=== PATIENT | female | born 1985 | race Caucasian/White ===

== ENCOUNTER 2024-06-11 13:02 | Emergency (ER) | payer BC, SELFPAY ==
[2024-06-11 13:22] VITALS: BP 124/80; PULSE 93; RESP 16; TEMP 36.7; O2SAT 99
--- NOTE | 2024-06-11 13:27 | ED.URI ---
HPI - URI/Sore Throat General Chief Complaint: Upper Respiratory Infection Stated Complaint: bilateral ear discomfort,nasal congestion Time Seen by Provider: 06/11/24 13:27 Source: patient, RN notes reviewed and old records reviewed Mode of arrival: ambulatory Limitations: no limitations History of Present Illness HPI Narrative: patient presents with complaints of nasal congestion and bilateral ear discomfort for about 1 week. She denies any fevers. She reports that ears are feeling progressively worse, she has been taking TheraFlu intermittently with poor relief. Denies any injury or trauma. Voices no other concerns or complaints today. Related Data Allergies Allergy/AdvReac Type Severity Reaction Status Date / Time No Known Allergies Allergy Verified 06/11/24 13:20 Review of Systems Review of Systems: All systems reviewed & are unremarkable except as noted in HPI and below Constitutional: Constitutional: Reports no additional constitutional complaints ENT: Reports system reviewed and no additional complaints, except as documented, Reports as per HPI and Reports otalgia Cardiovascular: Cardiovascular: Reports no additional cardiovascular complaints Respiratory: Respiratory: Reports no additional respiratory complaints Gastrointestinal: Gastrointestinal: Reports no additional gastrointestinal complaints PMFSH Comments At the time of my signature, I reviewed and agree with the nursing past medical, surgical, social, and family history. There is no relevant family history pertinent to the patient complaint. Exam Const: General: cooperative, no acute distress, alert and awake Orientation/consciousness: oriented to person, oriented to place and oriented to time HENMT: Head: normal to inspection Ears: TM abnormal dull on the right, erythematous on the left and with loss of landmarks on the left Resp: Effort & Inspection: normal respiratory effort and able to speak in complete sentences Auscultation: clear to auscultation bilaterally, no crackles, no rales, no rhonchi and no wheezes Cardio: Palpation: normal PMI Rate: regular rate Rhythm: regular rhythm Heart sounds: S1 normal heart sound present and S2 normal heart sound present Neuro: General: oriented to person, oriented to place and oriented to time Cranial nerves: Yes CN's II-XII intact bilaterally Psych: Appearance: grossly normal Thought process: Normal thought process present Insight: Good insight present (Psych) Judgement: Good judgement present (Psych) Course Course Level of Care: Express Care Visit Vital Signs Vital signs: Vital Signs Temperature 98.1 F 06/11/24 13:22 Pulse Rate 93 06/11/24 13:22 Respiratory Rate 16 06/11/24 13:22 Blood Pressure 124/80 06/11/24 13:22 Pulse Oximetry 99 06/11/24 13:22 Temperature 98.1 F 06/11/24 13:22 Pulse Rate 93 06/11/24 13:22 Respiratory Rate 16 06/11/24 13:22 Blood Pressure 124/80 06/11/24 13:22 Pulse Oximetry 99 06/11/24 13:22 Reviewed MDM - URI/Sore Throat MDM Narrative Medical decision making narrative: Physical exam consistent with otitis media. start Augmentin, follow with primary care provider. Emergency department for new or worse symptoms. Discharge instructions reviewed with patient, as well as provided in writing per nursing staff. The instructions also include specific and strict return/GO TO THE ER as well as f/u information. All questions have been answered, and the patient deny any further questions with discharge and discharge plan. Some parts of this dictation were generated by voice recognition software and may contain typographical and/or grammatical inaccuracies. Differential Diagnosis Differential diagnosis: Likely upper respiratory infection, otitis media, viral infection, influenza and pharyngitis Medical Records Attestation: I reviewed the patient's medical records. Discharge Plan Discharge Clinical Impression: Otitis media
== END 2024-06-11 13:36 | disposition home or self-care (01) ==
PROVIDERS: Emergency Provider Nurse Practitioner Family
DX: H66.002 Acute suppurative otitis media without spontaneous rupture of ear drum, left ear (principal)
CPT/HCPCS: 99213; G0463

== ENCOUNTER 2024-12-31 16:44 | Emergency (ER) | payer BC, SELFPAY ==
[2024-12-31 16:51] VITALS: BP 129/75; PULSE 67; RESP 16; TEMP 37.3; O2SAT 100
--- NOTE | 2024-12-31 17:00 | ED_ITS ---
HPI - Ear Problem General Chief complaint: Ear Stated complaint: EARACHE Time Seen by Provider: 12/31/24 16:55 Source: patient and RN notes reviewed Mode of arrival: ambulatory Limitations: no limitations History of Present Illness HPI Narrative: 39-year-old female presents concern for right ear pain. Reports this started last night. She denies cold symptoms, fever, drainage from the ear. MD Complaint: ear pain Related Data Allergies Allergy/AdvReac Type Severity Reaction Status Date / Time No Known Allergies Allergy Verified 12/31/24 16:49 Review of Systems Review of Systems: CONSTITUTIONAL: Denies malaise, chills, sweats, or fever. EYES: Denies visual changes, redness, or discharge. ENT: Denies rhinorrhea, congestion, sinus pain, and sore throat. Reports right ear pain CARDIOVASCULAR: Denies chest pain, palpitations, or edema. RESPIRATORY: Denies cough. Denies dyspnea. GASTROINTESTINAL: Denies abdominal pain, nausea, vomiting, diarrhea SKIN: Denies rash or itching. MUSCULOSKELETAL: Denies myalgia. NEUROLOGIC: Denies headache. All systems reviewed & are unremarkable except as noted in HPI and below PMFSH Social History Social History Smoking status: Never smoker Comments At time of signature, agree with nursing past medical, surgical, social and family history. There is no relevant family history pertinent to the presenting complaint Exam Narrative: GENERAL: Well-appearing, well-nourished, and in no acute distress. HEAD: Normocephalic EYES: PERRLA, conjunctivae clear ENT: Nares clear. Mucous membranes moist. TM pearly brown with sharp light reflex bilaterally; no tragal tenderness. Oropharynx not erythematous without lesions. Tonsils not enlarged and without exudate, no drooling, no hoarseness, no trismus, uvula midline. NECK: Supple. No lymphadenopathy CHEST: Clear to auscultation, breath sounds equal. No wheezing, rhonchi, rales, or stridor. No respiratory distress, speaks in full sentences. HEART: Regular rate and rhythm. No murmur heard. SKIN: Warm, dry, no rash. NEURO: Alert and oriented x3. PSYCH: Normal mood and affect Course Course Emergency Course: Patient is aware of diagnosis, understands and agrees to treatment plan. Anticipatory guidance given. Patient agrees to follow-up as directed and is aware of reasons to seek care at the emergency department. Portions of this record may have been created with voice recognition software Level of Care: [facility] Visit Vital Signs Vital signs: Vital Signs Temperature 99.1 F 12/31/24 16:51 Pulse Rate 67 12/31/24 16:51 Respiratory Rate 16 12/31/24 16:51 Blood Pressure 129/75 12/31/24 16:51 Pulse Oximetry 100 12/31/24 16:51 Temperature 99.1 F 12/31/24 16:51 Pulse Rate 67 12/31/24 16:51 Respiratory Rate 16 12/31/24 16:51 Blood Pressure 129/75 12/31/24 16:51 Pulse Oximetry 100 12/31/24 16:51 Reviewed. Medical Decision Making MDM Narrative Medical decision making narrative: I evaluated this [facility]. History is obtained from patient who is an independent historian and physical exam was performed.? Available medical records were reviewed. ? Exam findings and relevant testing show no acute concerns or changes; patient is non-toxic appearing and is in no distress. Differential diagnosis considered: Gilliam virus, strep pharyngitis, allergic rhinitis, upper respiratory tract infection, sinusitis, rhinosinusitis, nasopharyngitis. viral pharyngitis, otitis media, otitis externa, otitis effusion, cerumen impaction, foreign body. Exam findings show no acute concerns or changes; patient is non-toxic appearing and is in no distress. Patient is appropriate for outpatient treatment and follow-up. ? Differential diagnosis and treatment plan were discussed with the patient. Patient agrees with discussion and after shared medical decision making agrees with plan of care. All questions were answered to the patient's satisfaction. Patient is appropriate for outpatient treatment and follow-up. Vital Signs Vital Signs: Vital Signs Temperature 99.1 F 12/31/24 16:51 Pulse Rate 67 12/31/24 16:51 Respiratory Rate 12/31/24 16:51 Blood Pressure 129/75 12/31/24 16:51 Pulse Oximetry 100 12/31/24 16:51 Temperature 99.1 F 12/31/24 16:51 Pulse Rate 67 12/31/24 16:51 Respiratory Rate 16 12/31/24 16:51 Blood Pressure 129/75 12/31/24 16:51 Pulse Oximetry 100 12/31/24 16:51 Critical Care Time Critical Care Time Critical Care Time: No Discharge Plan Discharge Clinical Impression: Earache on right Patient Disposition: Home Condition: Stable Instructions: Earache (ED) Additional Instructions: 1) Please follow-up with your primary care doctor in the next 1-2 days. 2) If you have any worsening of symptoms or any other urgent concerns please go to the ER. 3) Please take medications as prescribed and continue taking your home medications as usual. 4) Please read and follow information included in discharge instructions. Patient Language: Estonian Prescriptions: New pseudoephedrine HCl [12 Hour Decongestant] 120 mg tablet extended release 120 mg PO Q12H PRN (Reason: nasal congestion) Qty: 20 0RF Follow-up/Referrals: PHYSICIAN,SUPERVISOR CHLORINE LIQUEFACTION [Primary Care Provider] - Time of Disposition: 17:03
== END 2024-12-31 17:04 | disposition home or self-care (01) ==
PROVIDERS: Emergency Provider Nurse Practitioner
DX: H92.01 Otalgia, right ear (principal)
CPT/HCPCS: 99213; G0463

== ENCOUNTER 2025-05-08 09:01 | Emergency (ER) | payer BC, SELFPAY ==
[2025-05-08 09:02] VITALS: BP 116/82; PULSE 92; RESP 16; TEMP 36.8; O2SAT 100
--- NOTE | 2025-05-08 09:11 | ED_ITS ---
HPI - URI/Sore Throat General Chief Complaint: Upper Respiratory Infection Stated Complaint: Sinus Infection Symptoms Time Seen by Provider: 05/08/25 09:11 Source: patient Mode of arrival: ambulatory Limitations: no limitations History of Present Illness HPI Narrative: 39-year-old female presents with complaint of nasal congestion, sinus pressure, postnasal drainage for 10-11 days. Reports blowing green drainage from nose. Taking Zyrtec daily. Has also been using Neti pot. Patient concern for bacterial sinusitis. All systems reviewed and negative except as noted above. Related Data Allergies Allergy/AdvReac Type Severity Reaction Status Date / Time No Known Allergies Allergy Verified 05/08/25 09:05 [facility] Surgical History Surgical History (Updated 02/01/25 @ 10:45 by Yamel Delvalle CMA) History of kidney surgery 07/01 Family History Family History (Updated 02/01/25 @ 10:46 by Yamel Delvalle CMA) Grandparent Lung cancer Mother Skin cancer Social History Social History (Updated 02/01/25 @ 10:46 by Yamel Delvalle CMA) Smoking status: Never smoker Alcohol intake: never Substance use: never Substance use type: does not use Do You Feel Safe in your Home?: Yes Lack of Transportation: No Lack of Food: Never True Current Housing: Decline to Answer Concerned About Future Housing: Decline to Answer Difficulty Paying Gas/Electric Bills: Decline to Answer Difficulty Paying for Meds: Decline to Answer Education: Decline to Answer Difficulty w/ Childcare or Family Care: Decline to Answer Living arrangements: with family Additional living arrangements comments: 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 There is no relevant family history pertinent to the presenting complaint. Exam Narrative: GENERAL: This is a well-nourished, well-developed patient, in no apparent distress. HEAD: normocephalic, atraumatic. EYES: PERRL. Sclera clear/white. Vision is grossly intact. EARS: External ears normal, auditory canals clear and without drainage, TMs normal without perforation. Hearing grossly intact. NOSE: External nose normal with purulent nasal drainage with mild erythema and swelling to nares. Bilateral maxillary sinus tenderness, worse to right side. THROAT: Mucous membranes moist, postnasal drainage. No erythema, swelling or exudates. NECK: Neck supple, non-tender without lymphadenopathy, masses or thyromegaly. CARDIOVASCULAR: Regular rate and rhythm without murmurs, gallops, or rubs. RESPIRATORY: Clear to auscultation. Breath sounds equal bilaterally. No wheezes, rales, or rhonchi. SKIN: warm, Dry, intact with no suspicious lesions or rash, good texture and turgor. NEURO: awake, alert, and oriented to person, place and time. There were no obvious focal neurologic abnormalities. EXTREMITIES: No joint tenderness, effusion, or edema noted. Course Course Level of Care: Express Care Visit Vital Signs Vital signs: Reviewed MDM - URI/Sore Throat MDM Narrative Medical decision making narrative: Will treat patient for bacterial sinusitis due to duration of symptoms and exam findings. Patient is alert, nontoxic. Differential Diagnosis Differential diagnosis: Likely upper respiratory infection, sinusitis and viral infection Discharge Plan Discharge Clinical Impression: Acute bacterial sinusitis Patient Disposition: Home Condition: Stable Instructions: Antibiotic Form, Sinusitis (ED) Additional Instructions: Take antibiotic as prescribed until gone. Continue taking daily antihistamine. Use a nasal spray daily such as Flonase or Nasacort. Drink plenty of water and rest. See your primary care physician if not improving. Patient Language: Eritrean Prescriptions: New amoxicillin-pot clavulanate 875-125 mg tablet 1 tablet PO Q12H 7 Days Qty: 14 0RF Follow-up/Referrals: PHYSICIAN,VISUAL BASIC .NET DEVELOPER [Primary Care Provider, Internal Medicine] Time of Disposition: 09:21
== END 2025-05-08 09:24 | disposition home or self-care (01) ==
PROVIDERS: Emergency Provider Nurse Practitioner Family
DX: J01.90 Acute sinusitis, unspecified (principal)
CPT/HCPCS: 99213; G0463